=== PATIENT | female | born 1980 | race Caucasian/White ===

== ENCOUNTER 2024-08-01 13:46 | Outpatient (CLI) | payer OTHER, SELFPAY ==
--- NOTE | 2024-08-01 14:00 | CRLHL7_ITS ---
For Patients: As a result of the Century Cures Act, medical imaging exams and procedure reports are released immediately into your electronic medical record. You may view this report before your referring provider. If you have questions, please contact your health care provider. OB ULTRASOUND FIRST TRIMESTER INDICATION: Dating and viability. TECHNIQUE: Real time jim scale imaging of the fetus was performed. Transabdominal. LMP: 04/11/2024. Single. Previous US: No. CERVIX: 5.0 cm. POSITIONING: Breech, transverse, multiple. AMNIOTIC FLUID: 3.7 cm. SDP (N: greater than 2 x 1 cm) PLACENTA: Technique: Transabdominal. PLACENTA POSITION: Posterior. DOPPLER: heart rate: 145 bpm. BIOMETRY: BPD: 3.7 cm. 17 w, 3 d, 95.2 percent. HC: 13.9 cm. 17 w, 2 d, 92.7 percent. AC: 11.7 cm. 17 w, 3 d, 90.6 percent. FL: 2.1 cm. 16 w, 1 d, 52.4 percent. FL/AC ratio: 177 percent. HC/AC ratio: 1.2. EFW: 172.5 g. Weight: 0 lbs, 6 oz. age by this US: 17 w, 1 d. STEFANI by this US: 01/08/2025. Percentile by STEFANI: 92.3 percent. IMPRESSION: 1. Sonographic gestational age 17 weeks 1 day and sonographic due date 01/08/2025. 2. Complex choroid plexus cyst on the left measures 8 x 8 x 6 mm. Follow-up at the routine anatomic survey recommended. Faizan Menjivar M.D. Diagnostic Radiologist [email or web address] ASIF/mauri JR/Dictated by: Faizan Menjivar MD @ 08/02/2024 6:11:00 AM (Electronically Signed)
== END 2024-08-01 13:47 | disposition home or self-care (01) ==
LOC: US 13:47
PROVIDERS: PCP Pediatrics; Visit Provider Registered Nurse
DX: Z34.92 Encounter for supervision of normal pregnancy, unspecified, second trimester (principal); O34.82 Maternal care for other abnormalities of pelvic organs, second trimester; N83.292 Other ovarian cyst, left side; Z3A.17 17 weeks gestation of pregnancy
CPT/HCPCS: 76815; 83021; 86703; 86706; 86803; 86850; 86900; 86901; 87086; 87340; 87491; 87591; 87624; 88142

== ENCOUNTER 2024-08-01 15:11 | Outpatient (CLI) | payer OTHER, SELFPAY ==
[2024-08-01 19:11] LABS: Chlamydia DNA Amplified* NOT DETECTED (No Detected); GC DNA Amplified* NOT DETECTED (No Detected)
[2024-08-04 01:07] LABS: HPV Source Cervix; HPV, High Risk by TMA Not Detected
== END 2024-08-01 15:12 | disposition home or self-care (01) ==
PROVIDERS: PCP Pediatrics; Visit Provider Registered Nurse
DX: Z34.82 Encounter for supervision of other normal pregnancy, second trimester (principal)
CPT/HCPCS: 83020; 83021; 85660; 86592; 86703; 86704; 86706; 86762; 86787; 86803; 86850; 86900; 86901; 87086; 87340; 87491; 87591; 87624; 87625; 88141; 88142

== ENCOUNTER 2024-08-24 10:57 | Outpatient (CLI) | payer OTHER, SELFPAY ==
--- NOTE | 2024-08-24 11:15 | CRLHL7_ITS ---
For Patients: As a result of the Century Cures Act, medical imaging exams and procedure reports are released immediately into your electronic medical record. You may view this report before your referring provider. If you have questions, please contact your health care provider. OB ULTRASOUND GREATER THAN 14 WEEKS, 08/24/2024 CLINICAL HISTORY: anatomy survey. COMPARISON: 08/01/2024. TECHNIQUE: Real time jim scale imaging of the fetus was performed. Evaluate anatomy. Transabdominal and transvaginal. FINDINGS: LMP: 04/11/2024. STEFANI by LMP: 01/16/2025. STEFANI by US: 01/08/2025. GA: 20 weeks 3 days. POSITION: Transverse. Head to maternal left. PLACENTA/CORD: Placenta Position: Posterior. Technique: TA and TV. Previa. UMBILICAL CORD: 3 vessel cord. Placental Insertion: Central. AMNIOTIC FLUID: 4.3 cm SDP. CERVIX: Visualized. Technique: TV. Length of closed cervix: 5.6 cm. OBSERVED STRUCTURES: Cerebellum: 2.1 cm, 21 weeks 2 days Cisterna Magna: 5.8 mm Nuchal Fold: 5.4-6.9 mm Lateral Ventricle: 1.6 mm CSP Choroid Plexus Midline Falx Spine Abdomen: Stomach Abd Cord Insert Urinary Bladder Kidneys Face: Nose/Lips Orbital View Profile Limbs; Upper Extremities Lower Extremities Hands Feet Vascular: 4 Ch Heart LVOT RVOT 3VV 3VTV BIOMETRY: BPD: 4.6 cm, 20 weeks 0 days. 32.5% HC: 17.4 cm, 20 weeks 0 days. 21.9% AC: 15.0 cm, 20 weeks 2 days. 36.7% FL: 3.0 cm, 19 weeks 1 day. 8.4% FL/AC Ratio: 19.9% HC/AC Ratio: 1.2 Heart Rate: 149 bpm. Age by this US: 20 weeks 1 day. STEFANI by this US: 01/10/2025. EFW: 3124 grams Percentile by STEFANI: 15.4% IMPRESSION: 1. Sonographic gestational age 20 weeks 1 day with sonographic due date 01/10/2025. Good correlation with dates. 2. Estimated weight 15th percentile. Abdominal circumference 37th percentile. Femur length 8th percentile. 3. Posterior placenta which covers the internal cervical os, confirmed with transvaginal imaging. This is consistent with complete placenta previa. 4. Fullness of the nuchal fold measuring 5.4-6.9 mm. Level 2 ultrasound/MFM consult recommended. 5. Incomplete visualization of the diaphragm. Remainder of the anatomic survey unremarkable. 6. Three small anterior uterine fibroids are present measuring 9 x 10 x 9 mm, 19 x 12 x 12 mm and 13 x 9 x 13 mm. Faizan Menjivar M.D. Diagnostic Radiologist [email or web address] Transcribed: 2:43 pm DW/Dictated by: Faizan Menjivar MD @ 08/24/2024 1:15:00 PM (Electronically Signed)
== END 2024-08-24 10:58 | disposition home or self-care (01) ==
LOC: US 10:57
PROVIDERS: PCP Pediatrics; Visit Provider Registered Nurse
DX: Z34.92 Encounter for supervision of normal pregnancy, unspecified, second trimester (principal); O34.12 Maternal care for benign tumor of corpus uteri, second trimester; D25.9 Leiomyoma of uterus, unspecified; Z3A.20 20 weeks gestation of pregnancy
CPT/HCPCS: 76805; 76817

== ENCOUNTER 2024-10-19 09:58 | Outpatient (CLI) | payer OTHER, SELFPAY ==
--- NOTE | 2024-10-19 10:00 | CRLHL7_ITS ---
For Patients: As a result of the Century Cures Act, medical imaging exams and procedure reports are released immediately into your electronic medical record. You may view this report before your referring provider. If you have questions, please contact your health care provider. OB ULTRASOUND LMP: 04/11/2024. STEFANI by US: 01/08/2025. GA: 28 w, 3 d. Single. Comparison: 08/24/2024, 08/01/2024. INDICATION: Follow-up placenta previa and diaphragm. TECHNIQUE: Real time grayscale imaging of the fetus was performed. Transabdominal. CERVIX: Visualized. Transabdominal Measurement: 3.7 cm. POSITIONING: Right transverse. AMNIOTIC FLUID: 5.9 cm. SDP (N: greater than 2 x 1 cm) PLACENTA: Technique: Transabdominal. PLACENTA POSITION: Posterior. DOPPLER: heart rate: 137 bpm. IMPRESSION: 1. Posterior placenta is present. The placental edge is located 4.1 cm from the internal cervical os. The cervix is closed and measures 3.7 cm. 2. Normal diaphragm. Faizan Menjivar M.D. Diagnostic Radiologist [email or web address] ASIF/maritza salas/Dictated by: Faizan Menjivar MD @ 10/19/2024 11:11:00 AM (Electronically Signed)
--- OUTSIDE RECORDS SUMMARY | 2024-10-20 00:59 | XMS_ITS | Clinical Summary ---
Author Organization [facility] Address [address] [place] [address] Care Team Providers Care Raschel Knitting Machine Operator Name Role Phone Lillian Matos MD Primary Care Provider [phone] Allergies No known active allergies Medications Vit-Fe Fumarate-FA ( MULTIVITAMIN PLUS IRON) 27-0.8 MG TABS per tablet Take 1 tablet by mouth daily Active ibuprofen (ADVIL/MOTRIN) 400 MG tabletIndication s:Indication for care in labor or delivery Take 1-2 tablets (400-800 mg) by mouth every 6 hours as needed for other (cramping) 120 tablet 3 7 Active Additional Information Patient not taking.Reported on 10/31/2018 Acetaminophen (TYLENOL PO) Take 1,000 mg by mouth every 6 hours as needed for mild pain or fever Active Active Problems Problem Noted Date Diagnosed Date Unstable lie of fetus 12/12/2020 Indication for care in labor or delivery 017 Social History Tobacco Use Types Packs/Day Years Used Date Smoking Tobacco: Never Smokeless Tobacco: Never Alcohol Use Standard Drinks/Week Comments No 0 (1 standard drink = 0.6 oz pur e alcohol) Garrard Depression Scale Answer Date Recorded Garrard Depression Score 8 12/14/2020 Last EPDS Self Harm Result Not on file 12/14 Adolescent Education Answer Date Record ed Getting School Help Needed Not on file 01/21 Comments No Sex and Gender Information Value Date Recorded Sex Assigned at Not on file Legal Sex Female 2:59 PM 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 Gender Identity Not on file Sexual Orientation Not on file Last Filed Vital Signs Vital Sign Reading Time Taken Comments Blood Pressure 119/69 12/14/2020 8:00 AM CDT Pulse 72 12/14/2020 8:00 AM CDT Temperature 36.4 C (97.6 F) 12/14/2020 8:00 AM CDT Respiratory Rate 16 12/14/2020 8:00 AM CDT Oxygen Saturation 99% 12/13/2020 6:08 AM CDT Inhaled Oxygen Concentration - - Weight 83 kg (183 lb) 12/12/2020 8:09 AM CDT Height 170.2 cm (5' 7) 12/12/2020 8:09 AM CDT Body Mass Index 28.66 12/12/2020 8:09 AM CDT Plan of Treatment Not on file Advance Directives For more information, please contact: [phone] * Full Code (Latest Code Status on File) Date Activated Date Inactivated Comments 12/12/2020 10:49 PM 12/13/2020 5:24 AM All basic a nd advanced life-sustaining interventions are performed as appropriate Question Answer Comments Code status determined by: Other (please sushil velázquez) * Full Code Date Activated Date Inactivated Comments 08/04/2016 6:53 AM 12/12/2020 7:32 AM Care Teams Raschel Knitting Machine Operator Relationship Specialty Start Date End Date Lillian Matos MD [facility] [address] [place] [address] PCP - General Internal Medicine 01/12/23
--- OUTSIDE RECORDS SUMMARY | 2024-10-20 00:59 | XMS_ITS | Encounter Summary ---
Author Organization [facility] Address [address] [place] [address]. [place] [address] Care Team Providers Care Secretary [employer] Of Commissioners Name Role Phone Екатерина Maldonado MD Primary Care Provider [phone] Lillian Matos MD Primary Care Provider [phone] Encounter Details Date Type Department Care Team (Late st Contact Info) Description 05/06/2020 External Order Results [facility] [address] [place] [address] Outside, Provider Social History Tobacco Use Types Packs/Day Years Used Date Smoking Tobacco: Never Alcohol Use Standard Drinks/Week Comments No 0 (1 standard drink = 0.6 oz pur e alcohol) Comments No Sex and Gender Information Value Date Recorded Sex Assigned at Not on file Legal Sex Female 2:59 PM TIRE MOLDER Gender Identity Not on file Sexual Orientation Not on file documented as of this encounter Plan of Treatment Not on file documented as of this encounter Procedures Procedure Name Priority Date/Time Associated Diagnosis Comments TREPONEMA PALLIDUM ANTIBODY (RPR) (EXTERNAL RESULT) Routine 05/06/2020 11:40 AM TIRE MOLDER HIV 1&2 ANTIBODY (EXTERNAL RESULT) Routine 05/06/2020 11:40 AM TIRE MOLDER RUBELLA ANTIBODY IGG (EXTERNAL RESULT) Routine 05/06/2020 11:40 AM TIRE MOLDER ABO & RH (EXTERNAL RESULT) Routine 05/06/2020 11:40 AM TIRE MOLDER CBC WITH PLATELETS & DIFFERENTIAL Routine 05/06/2020 11:40 AM TIRE MOLDER HEPATITIS C ANTIBODY Routine 05/06/2020 11:40 AM TIRE MOLDER HEPATITIS B SURFACE ANTIGEN Routine 05/06/2020 11:40 AM TIRE MOLDER documented in this encounter Results * (ABNORMAL) CBC with Platelets & Differential (05/06/2020 11:40 AM TIRE MOLDER) % Basophils (External) 0.3 % NON-INTERFACE D (ONBASE SCANS) Absolute Basophils (External) 0.03 0.00 - 0.20 K/uL NON-INTERFACE D (ONBASE SCANS) % Eosinophils (External) 2.0 % NON-INTERFACE D (ONBASE SCANS) Absolute Eosinophils (External) 0.23 0.00 - 0.45 K/uL NON-INTERFACE D (ONBASE SCANS) Hematocrit (External) 34.0(L) 36.0 - 48.0 % NON-INTERFACE D (ONBASE SCANS) Hemoglobin (External) 11.4(L) 12.0 - 15.0 gm/dL NON-INTERFACE D (ONBASE SCANS) Absolute Immature Granulocytes (External) 0.05 K/uL NON-INTERFACE D (ONBASE SCANS) % Immature Granulocytes (External) 0.4 <=1.0 % NON-INTERFACE D (ONBASE SCANS) % Lymphocytes (External) 15.7 % NON-INTERFACE D (ONBASE SCANS) Absolute Lymphocytes (External) 1.81 1.00 - 4.00 K/uL NON-INTERFACE D (ONBASE SCANS) MCH (External) 30 27 - 33 Pg NON- INTERFACE D (ONBASE SCANS) MCHC (External) 34 33 - 36 % NON- INTERFACE D (ONBASE SCANS) MCV (External) 89 80 - 100 fL NON-INTERFACE D (ONBASE SCANS) % Monocytes (External) 8.9 % NON-INTERFACE D (ONBASE SCANS) Absolute Monocytes (External) 1.02(H) 0.00 - 1.00 K/uL NON-INTERFACE D (ONBASE SCANS) Platelet Count (External) 271 150 - 400 K/UL NON-INTERFACE D (ONBASE SCANS) % Neutrophils (External) 72.7 % NON-INTERFACE D (ONBASE SCANS) Absolute Neutrophils (External) 8.38(H) 1.80 - 7.80 K/uL NON-INTERFACE D (ONBASE SCANS) RBC Count (External) 3.83(L) 4.20 - 5.40 M/uL NON-INTERFACE D (ONBASE SCANS) RDW (External) 12.0 11.5 - 14.5 % NON-INTERFACE D (ONBASE SCANS) WBC Count (External) 11.5(H) 4.3 - 10.8 K/u L NON-INTERFACE D (ONBASE SCANS) Blood 05/06/2020 11:4 0 AM TIRE MOLDER Narrative B[facility]ZE PFT - 12/07/2020 11:12 AM CDT Verified by Jose Toro on 12/07/2020. Patient Reported LAB - BLOOD ORDERABLES Edited [employer] Performing Organization Address [facility] de Phone Number [facility] PFT NON-INTERFACED (ONBASE SCANS) * Hepatitis B surface antigen (05/06/2020 11:40 AM TIRE MOLDER) Hep B Surface Agn (External) Non-Reacti ve Non-Reacti ve NON-INTERFACE D (ONBASE SCANS) Blood 05/06/2020 11:4 0 AM TIRE MOLDER Narrative [facility] PFT - 12/07/2020 11:12 AM CDT Verified by Jose Toro on 12/07/2020. Patient Reported LAB - BLOOD ORDERABLES [facility] Performing Organization Address [facility] Co de Phone Number B[facility]ZE PFT NON-INTERFACED (ONBASE SCANS) * Rubella Antibody IgG (External Result) (05/06/2020 11:40 AM TIRE MOLDER) Rubella Antibody IgG (External) Immune Immune NON-INTERFACED (ONBASE SCANS) 05/06/2020 11:4 0 AM TIRE MOLDER Narrative [facility]ZE PFT - 12/07/2020 11:12 AM CDT Verified by Jose Toro on 12/07/2020. us Patient Reported LAB - HIM EXTERNAL RESULT Edite d Result - Final Performing Organization Address [facility]/ZIP Co de Phone Number BREEZE PFT NON-INTERFACED (ONBASE SCANS) * Treponema Pallidum Antibody (RPR) (External Result) (05/06/2020 11:40 AM TIRE MOLDER) Treponema Palldum Antibody (External) Nonreactive Nonreactive NON-INTERFAC ED (ONBASE SCANS) 05/06/2020 11:4 0 AM TIRE MOLDER Narrative [facility]ZE PFT - 12/07/2020 11:12 AM CDT Verified by Jose Toro on 12/07/2020. us Patient Reported LAB - HIM EXTERNAL RESULT Edite d Result - Final Performing Organization Address [facility] de Phone Number BREEZE PFT NON-INTERFACED (ONBASE SCANS) * Hepatitis C antibody (05/06/2020 11:40 AM TIRE MOLDER) Hepatitis C Antibody (External) Non-Reacti ve Non-Reacti ve NON-INTERFACE D (ONBASE SCANS) Blood 05/06/2020 11:4 0 AM TIRE MOLDER Narrative [facility]ZE PFT - 12/07/2020 11:12 AM CDT Verified by Jose Toro on 12/07/2020. us Patient Reported LAB - BLOOD ORDERABLES Edited R esult - Final Performing Organization Address [facility] Co de Phone Number BREEZE PFT NON-INTERFACED (ONBASE SCANS) * HIV-1 Antibody (External Result) (05/06/2020 11:40 AM TIRE MOLDER) HIV 1&2 Antibody (External) Non-Reacti ve Non-Reacti ve NON-INTERFACE D (ONBASE SCANS) 05/06/2020 11:4 0 AM TIRE MOLDER Narrative [facility]ZE PFT - 12/10/2020 8:07 AM CDT Verified by Jose Toro on 12/07/2020. us Patient Reported LAB - HIM EXTERNAL RESULT Edite d Result - Final [place] PFT NON-INTERFACED (ONBASE SCANS) * ABO & RH (External Result) (05/06/2020 11:40 AM TIRE MOLDER) ABO (External) O NON-I NTERFACE D (ONBASE SCANS) Rh (External) Positive NON-IN TERFACE D (ONBASE SCANS) Comment:Antibody Screen: Neg ative 05/06/2020 11:4 0 AM TIRE MOLDER Narrative [place] PFT - 12/07/2020 11:12 AM CDT Verified by Jose Toro on 12/07/2020. us Patient Reported LAB - HIM EXTERNAL RESULT Edite d Result - Final [place] PFT NON-INTERFACED (ONBASE SCANS) documented in this encounter Visit Diagnoses Not on filedocumented in this encounter Care Teams Secretary Board Of Commissioners Relationship Specialty Start Date End Date Екатерина Maldonado MD [address] [place] [address] PCP - General sorting cows worker 06/24/16 01/11/23 Lillian Matos MD [facility] [address] [address] [place] [address] PCP - General Internal Medicine 01/12/23 documented as of this encounter
== END 2024-10-19 09:59 | disposition home or self-care (01) ==
LOC: US 09:59
PROVIDERS: PCP Pediatrics; Visit Provider Obstetrics & Gynecology
DX: O44.03 Complete placenta previa NOS or without hemorrhage, third trimester (principal); Z3A.28 28 weeks gestation of pregnancy
CPT/HCPCS: 76816; 86592

== ENCOUNTER 2024-11-15 14:41 | Outpatient (CLI) | payer OTHER, SELFPAY ==
--- NOTE | 2024-11-15 14:45 | CRLHL7_ITS ---
For Patients: As a result of the Cures Act, medical imaging exams and procedure reports are released immediately into your electronic medical record. You may view this report before your referring provider. If you have questions, please contact your health care provider. OBSTETRICAL ULTRASOUND ??? FOLLOW-UP, 11/15/2024 INDICATION: AMA. CLINICAL HISTORY: STEFANI by US: 01/08/2025 Gestational Age: 32 weeks 2 days COMPARISON: 10/19/2024, 08/24/2024, 08/01/2024. TECHNIQUE: Real-time jim-scale transabdominal imaging of the fetus was performed. FINDINGS: Fetus: Single Cervix: Not visualized positioning: Transverse, right Amniotic Fluid: INDIO: 25.7 cm 8.6 cm SDP Placenta technique: Transabdominal Placenta position: Posterior heart rate: 131 bpm BIOMETRY: BPD: 8.8 cm, 35 weeks 3 days, >97% HC: 31.8 cm, 35 weeks 5 days, 92.6% AC: 31.3 cm, 35 weeks 1 days, >97% FL: 6.0 cm, 31 weeks 2 days, 14.9% FL/AC Ratio: 19.26% HC/AC ratio: 1.02 EFW: 2379 grams; 5 lbs. 4 oz. age by this ultrasound: 34 weeks 3 days STEFANI by this ultrasound: 12/24/2024 Percentile by STEFANI: 92.5% IMPRESSION: 1. Sonographic gestational age 34 weeks 3 days and sonographic due date 12/24/2024. Sonographic age is 15 days ahead of the clinical age. 2. Estimated weight is 93rd percentile. Abdominal circumference is greater than 97th percentile. Biparietal diameter is greater than 97th percentile. FAIZAN MOMIN M.D. Diagnostic Radiologist [email or web address] Transcribed: 3:[address]/Dictated by: Faizan Momin MD @ 11/15/2024 3:30:00 PM (Electronically Signed)
== END 2024-11-15 14:42 | disposition home or self-care (01) ==
LOC: US 14:42
PROVIDERS: PCP Pediatrics; Visit Provider Obstetrics & Gynecology
DX: O09.523 Supervision of elderly multigravida, third trimester (principal); O36.63X0 Maternal care for excessive fetal growth, third trimester, not applicable or unspecified; Z3A.32 32 weeks gestation of pregnancy
CPT/HCPCS: 76816

== ENCOUNTER 2024-11-29 10:05 | Outpatient (CLI) | payer OTHER, SELFPAY ==
--- NOTE | 2024-11-29 10:15 | CRLHL7_ITS ---
For Patients: As a result of the Cures Act, medical imaging exams and procedure reports are released immediately into your electronic medical record. You may view this report before your referring provider. If you have questions, please contact your health care provider. OB ULTRASOUND LIMITED, 11/29/2024 CLINICAL HISTORY: Polyhydramnios. TECHNIQUE: Real time jim scale imaging of the fetus was performed. Transabdominal imaging performed. COMPARISON: 11/15/2024, 10/19/2024, 08/24/2024. FINDINGS: STEFANI by US: 01/08/2025. GA: 34 weeks 2 days. Gestation: Single. Cervix: Not visualized. Positioning: Multiple. Amniotic Fluid: 21.9 cm INDIO. 5.7 cm SDP. Placenta: Technique: TA. Placental Position: Fundal, posterior. Dopplers: Heart Rate: 153 bpm. IMPRESSION: Amniotic fluid single deepest pocket 5.7 cm. INDIO 21. 9 cm. Faizan Menjivar M.D. Diagnostic Radiologist [email or web address] Transcribed: 9:21 am DW/Dictated by: Faizan Menjivar MD @ 12/02/2024 9:06:00 PM (Electronically Signed)
== END 2024-11-29 10:06 | disposition home or self-care (01) ==
LOC: US 10:05
PROVIDERS: PCP Pediatrics; Visit Provider Obstetrics & Gynecology
DX: O40.3XX0 Polyhydramnios, third trimester, not applicable or unspecified (principal); Z3A.34 34 weeks gestation of pregnancy
CPT/HCPCS: 76815; 82728

== ENCOUNTER 2024-12-10 15:53 | Outpatient (CLI) | payer OTHER, SELFPAY ==
[2024-12-11 15:32] LABS: Strep B DNA Probe Negative (Negative)
[2024-12-11 18:02] LABS: Strep B Susceptibility Needed? No
== END 2024-12-10 15:54 | disposition home or self-care (01) ==
LOC: NFLDREF 15:53
PROVIDERS: PCP Pediatrics; Visit Provider Obstetrics & Gynecology
DX: Z34.93 Encounter for supervision of normal pregnancy, unspecified, third trimester (principal); Z3A.35 35 weeks gestation of pregnancy
CPT/HCPCS: 87081; 87653

== ENCOUNTER 2025-01-02 05:38 | Inpatient (IN) | payer OTHER, SELFPAY ==
[2025-01-02] VITALS (19 sets, daily range): BP systolic 109–132; BP diastolic 65–79; PULSE 65–80; RESP 16–18; TEMP 36.4–36.9; O2SAT 95–98; BMI 30.5
[2025-01-02] MEDS: LACTATED RINGERS 1000 ML 1,000 ML 1200 ML IV ×2 (06:14→07:02)
[2025-01-02 06:24] LABS: Hematocrit 31.7 % (33.0-51.0); Hemoglobin* 10.9 gm/dL (12.0-16.0); Immature Granulocytes Pct Auto 4.2 %; Mean Corpuscular HGB Conc 34 gm/dL (32-36); Mean Corpuscular Hemoglobin 30 pg (26-34); Mean Corpuscular Volume 88 fL (80-100); RDW Coefficient of Variation % 14.1 % (11.5-15.5); Red Blood Count 3.59 m/uL (4.00-5.20); White Blood Count* 12.42 K/uL (4.50-11.00)
[2025-01-02 06:37] LABS: Immature Granulocytes Abs Auto 0.50 K/uL (0.00-0.30); Lymphocytes Absolute Auto 1.90 K/uL (0.90-2.90); Slide Review Reflex No
--- NOTE | 2025-01-02 06:58 | W.PM.H&PU_ITS ---
History & Physical Update History & Physical Update H&P Reviewed and patient assessed: No changes noted H&P Updates: Ms. King is a 44yo at 39w1d GA seen in pre-op prior to planned primary delivery and salpingectomy. Patient desires primary due to traumatic 1st delivery (retained products, endometritis, perineal incision breakdown, dyspareunia) but was also malpresenting on admission. No interval change to her health history or questions today. We again reviewed the risks, benefits and alternatives to the planned procedure. Written consent was previously signed on 12/10, verbally affirmed. TAUS performed where fetus was noted to be transverse, back positioned anteriorly. Explained this increases the likelihood of classical hysterotomy to facilitate delivery, where this would preclude future vaginal deliveries (though patient desires salpingectomy today) and could increase risk of bleeding. Reactive NST. Post- procedure restrictions and expectations reviewed. Pre-op labs reviewed and are within normal limits. Ancef as perioperative antibiotics indicated. Pediatrics provider requested to attend delivery in the setting of malpresentation.
[2025-01-02] MEDS: CEFAZOLIN 2 GM INJ IVP (07:35)
--- NOTE | 2025-01-02 07:44 | P.ANES_ITS ---
Anesthesia Charges Start Date/Time Anesthesia Start Date: 01/02/25 Anesthesia Start Time: 07:22 Stop Date/Time Anesthesia Stop Date: 01/02/25 Anesthesia Stop Time: 09:00 Coding CPT Codes CPT Codes: ANESTH CS DELIVERY - 54827 ([id number]) P2 - PATIENT W/MILD SYST DISEASE, QK - DESIGN PRINTING MACHINE SET UP OPERATOR 2-4 CNCRNT ANES PROC, QX - MATH TEACHER SVC W/ MD MED DIRECTION
--- NOTE | 2025-01-02 07:44 | W.ANESCHARGE ---
Anesthesia Charges Start Date/Time Anesthesia Start Date: 01/02/25 Anesthesia Start Time: 07:22 Stop Date/Time Anesthesia Stop Date: 01/02/25 Anesthesia Stop Time: 09:00 Coding CPT Codes CPT Codes: ANESTH CS DELIVERY - 94797 ([id number]) P2 - PATIENT W/MILD SYST DISEASE, QK - SHOOTING GALLERY OPERATOR 2-4 CNCRNT ANES PROC, QX - PLASTIC TOP ASSEMBLER SVC W/ MD MED DIRECTION
--- NOTE | 2025-01-02 07:45 | P.NB_ITS ---
Nerve Block Nerve Block Time Seen by Provider: 08:54 Date Seen: 01/02/25 Type of block requested by surgeon for post-operative analgesia: TAP Side: bilateral Time out performed: Yes Verification of patient name: Yes Verification of date of : Yes Site marking: site marked Name of person performing procedure: Claudio Coley Continuous monitoring Was continuous monitoring of O2 sat, B/P, monitor technician, recorded every 15 minutes?: Yes Procedure Checklist: sterile prep, needles and gloves Ultrasound guided. Images saved: Yes Medications given in 5ml increments after negative aspiration: Marcaine %: 0.25 mL: 30 Needle gauge: 20 and Exparel mL: 10 Needle gauge: 20 Patient tolerated procedure well: Yes Additional comments: Injected in 5ml increments after negative aspiration Block Charges Block Charge (with Pro Fee): TAP Bilateral Use of Ultrasound Machine for Block: Yes- US Guidance/pain block
--- NOTE | 2025-01-02 07:57 | P.ANES_ITS ---
Anesthesia Charges Start Date/Time Anesthesia Start Date: 01/02/25 Anesthesia Start Time: 07:22 Stop Date/Time Anesthesia Stop Date: 01/02/25 Anesthesia Stop Time: 09:00 Coding CPT Codes CPT Codes: ANESTH CS DELIVERY - 83701 ([id number]) P2 - PATIENT W/MILD SYST DISEASE, QK - SECURITY ASSURANCE SPECIALIST 2-4 CNCRNT ANES PROC, QX - RAIL CAR WELDER SVC W/ MD MED DIRECTION
--- NOTE | 2025-01-02 07:57 | W.ANESCHARGE ---
Anesthesia Charges Start Date/Time Anesthesia Start Date: 01/02/25 Anesthesia Start Time: 07:22 Stop Date/Time Anesthesia Stop Date: 01/02/25 Anesthesia Stop Time: 09:00 Coding CPT Codes CPT Codes: ANESTH CS DELIVERY - 99617 ([id number]) P2 - PATIENT W/MILD SYST DISEASE, QK - BANKING OFFICER 2-4 CNCRNT ANES PROC, QX - BIOMASS POWER PLANT MANAGER SVC W/ MD MED DIRECTION
--- NOTE | 2025-01-02 08:54 | P.OBPRC_ITS ---
Procedure Time Seen by Provider: 08:40 Date of procedure: 01/02/25 Pre-op diagnosis: Transverse presentation, undesired fertility, AMA, polyhydramnios (resolved), abnormal ultrasound (choroid plexus cyst resolved, thickened nuchal fold - declined further evaluation with NIPT or level 2), suspected macrosomia, anemia Post-op diagnosis: same Procedure Done: Global Will [facility] bill your pro fee for this procedure?: Yes Blood Loss Measurement Type: QBL (593) Bakri Used: No IV fluids (mL): 1,800 Urine Output (mL): 250 Urine Output Comment: clear, yellow Surgeon: Jack Patino MD Anesthesia Type: Spinal Findings: Liveborn male Unremarkable uterus bilateral fallopian tubes and ovaries 1cm simple appearing right paratubal cyst Procedure Name: Primary Bilateral salpingectomy Procedure Description: Patient was taken to the operating room with IV running. She received cefazolin in preoperative prophylaxis. Spinal anesthesia was administered. Lu catheter was inserted. She was prepped and draped in the usual sterile fashion. Anesthesia was tested and found to be adequate. A low-transverse skin incision was made with a scalpel and carried through to the underlying layer of fascia with the scalpel. The subcutaneous fat was dissected off the underlying fascia with Bovie and blunt dissection. The fascia was nicked in the midline with a scalpel, and this incision was extended laterally with scissors. The rectus muscles were in the midline. Peritoneum was identified and entered bluntly. Bovie was used to widen this opening laterally. Brendan O retractor was inserted and tightened down, providing excellent visualization of the lower uterine segment. The bladder reflection was found to be advanced along the lower uterine segment. A bladder flap was created with a combination of sharp and blunt dissection. The fetus was noted to be oblique with head to maternal left pelvis, back palpated anteriorly. Pressure was applied at the lateral uterine fundus to gently correct position to vertex and centrally at the level of the lower uterine segment. Low-transverse uterine incision was made with a scalpel. Incision was widened bluntly. The infant's head was grasped through the hysterotomy and elevated to the hysterotomy. The remainder of the body delivered without incident with the help of fundal pressure. Loose nuchal cord was noted, reduced. Vigorous noted, excellent tone and spontaneous cry. Cord was clamped and cut after 30 seconds. was handed off to attending nurses. The placenta was delivered with gentle traction on the cord. The uterus was cleaned of all clots and debris with the dry lap pad. The hysterotomy was reapproximated with 0 Vicryl in a running, locked fashion. Second layer of the same suture was used in imbricating fashion to obtain hemostasis. The adnexa were examined and noted to be normal in appearance, aside from a 1cm right simple paratubal cyst. The right fallopian tube was identified and elevated with Babcocks. The right fallopian tube was sequentially ligated and transected from the mesosalpinx using the Ligasure cautery device. We proceeded from the fimbriated end, lateral to medial, and the tube was amputated at the right uterine cornua. Specimen was removed from the field. Paratubal cyst toward the fimbriated end of the tube was separately grasped, elevated and ligated/transected with ligasure. Excellent hemostasis noted. Salpingectomy was repeated on the patient's left side, and the left fallopian tube was also amputated at the cornua and removed from the patient's abdomen. Both fallopian tubes and the right paratubal cyst were sent for pathologic evaluation. The cul-de-sac and gutters were cleansed with dampened laparotomy sponge, removing any further clots and debris. The hysterotomy and salpingectomy sites were inspected and noted to be hemostatic. The Brendan O retractor was removed. The hysterotomy was reexamined and found to be hemostatic. The rectus muscles were examined and made hemostatic with electrocautery. The fascia was reapproximated with 0 Vicryl in a running fashion. Subcutaneous fat was irrigated and Bovie used on oozing vessels. The subcutaneous fat did not require closure. The skin was closed with a subcuticular stitch of 3-0 monocryl. Surgical glue was applied above this. Patient tolerated procedure well was taken to recovery area in stable condition. Surgical debrief was completed. Specimens include placenta, bilateral fallopian tubes and right paratubal cyst. details: - Liveborn male fetus - weight: 3945g - APGARs were 8 and 9 at 1 and 5 minutes respectively Complications: None Pathology: specimen obtained, sent to pathology Surgery Debrief Performed: Yes Condition: stable Disposition: floor [place] total score - 1 minute: 8 total score - 5 minute: 9
[2025-01-02] MEDS: ACETAMINOPHEN 500 MG TABLET 1000 MG PO ×2 (12:44→19:21)
[2025-01-02] MEDS: DOCUSATE SODIUM 100 MG CAPSULE PO (14:09)
[2025-01-03 01:12] VITALS: BP 113/68; PULSE 71; RESP 16; TEMP 36.6; O2SAT 97
[2025-01-03 04:50] VITALS: BP 125/80; PULSE 78; RESP 16; TEMP 36.5; O2SAT 96
[2025-01-03] MEDS: DOCUSATE SODIUM 100 MG CAPSULE PO (08:34)
[2025-01-03] MEDS: FERROUS SULFATE 325 MG TABLET PO (08:34)
--- NOTE | 2025-01-03 08:34 | P.OBPN_ITS ---
OB - PN:Subj Subjective Date Seen: 01/03/25 Narrative: Shae is a 44 year old who was admitted for schedule and proceeded to have a scheduled ? due to traumatic previous , but baby was found transverse on admission.The patient feels well.? The pain is well contro lled with current medications.? She has no new complaints.? Urinary output is adequate and she is voiding without difficulty.? Has a good appetite, is tolerating a general diet, is passing flatus, and has not had a bowel movement.? Has scant amount of rubra lochia.? She is ambulating well. She is and reports it is going well.? OB - PN: Obj Exam Physical Exam: Vital signs: Temp Pulse Resp BP Pulse Ox O2 Del Method 97.7 F 78 16 125/80 96 Room Air 01/03/25 04:50 01/03/25 04:50 01/03/25 04:50 01/03/25 04:50 01/03/25 04:50 01/03/25 04:50 Narrative: GENERAL APPEARANCE:? normal affect, alert, no distress MOOD:? appropriate CHEST:? clear to auscultation HEART:? regular rate and rhythm ABDOMEN:? soft, non-tender the uterine fundus is At Umbilicus, Midline and is appropriate for the stage of recovery. EXTREMITIES:? normal and mild edema Incision: Healing well, no surrounding erythema, abnormal induration or discharge noted on surgical dressing OB - PN: A/P Delivery Plan Comments: PP day #1 Routine care May see as desired Anticipate discharge 01/04/2025
[2025-01-03] MEDS: ACETAMINOPHEN 500 MG TABLET 1000 MG PO ×2 (10:45→18:26)
[2025-01-03 10:46] VITALS: BP 113/75; PULSE 76; RESP 18; TEMP 36.9; O2SAT 96
[2025-01-03 18:21] VITALS: BP 124/78; PULSE 76; RESP 18; O2SAT 97
[2025-01-03 20:01] VITALS: BP 122/74; PULSE 74; RESP 16; TEMP 36.4; O2SAT 98
[2025-01-03] MEDS: IBUPROFEN 600 MG TABLET PO (20:36)
[2025-01-04] MEDS: ACETAMINOPHEN 500 MG TABLET 1000 MG PO ×2 (00:32→07:54)
[2025-01-04] MEDS: IBUPROFEN 600 MG TABLET PO ×2 (02:37→11:57)
[2025-01-04 04:13] VITALS: BP 105/65; PULSE 71; RESP 16; O2SAT 98
--- NOTE | 2025-01-04 07:49 | PM.OBDSVD1 ---
DS: Providers Provider Time Seen by Provider: 07:30 Date Seen: 01/04/25 Date of admission: 01/02/25 05:38 Primary care physician: Lillian Matos MD Admitting Clinician: Yadi Patino MD Attending Physician on discharge: Tiffany Trotter CNM Date of Discharge: 01/04/25 DS: Diagnosis Discharge Diagnosis (1) normal course: Status: Acute (2) Status post bilateral salpingectomy: Status: Acute (3) Anemia affecting in third trimester: Status: Acute (4) PTSD (post-traumatic stress disorder): Status: Acute Problem details: Post 1st baby: Retained placenta > endometritis > D&C > pelvic floor dysfunction & Pain > Pelvic floor PT & PP Depression. (5) Lactating mother: Status: Acute Exam Narrative: Exam Narrative: Constitutional: no acute distress Psych: alert and oriented, calm and cooperative Cardiac: regular heart rate and rhythm Respiratory: regular breathing effort, lung sounds clear to auscultation Extremities: normal, no edema Abdomen: soft, uterine fundus firm, 1 fingerbreath below umbilicus. appropriate for stage of healing Incision: low transverse incision approximated with surgical glue. No redness. No drainage. Breasts: left nipple reddened Neuro: normal sensation and movement in all extremities Const: Vital Signs, click to edit/add: Vital Signs - 24 hr 01/03/25 10:46 01/03/25 18:21 01/03/25 20:01 Temperature 98.4 F 97.6 F Pulse Rate [Pulse Oximeter] 76 76 74 Respiratory Rate 18 18 16 Blood Pressure [Ri ght Arm] 113/75 124/78 122/74 Pulse Oximetry 96 97 98 Oxygen Delivery Me thod Room Air Room Air Room Air 01/04/25 04:13 Temperature Pulse Rate [Pulse Oximeter] 71 Respiratory Rate 16 Blood Pressure [Ri ght Arm] 105/65 Pulse Oximetry 98 Oxygen Delivery Me thod Room Air Documenting provider has reviewed patient's vital signs: yes OB - DS: Summary Hospital Course Hospital Course: Shae is a 44 year old G 3 P 3 that was admitted to the Center on 01/02/25 for primary section for patient's desire r/t history of traumatic and transverse presentation. She had an uncomplicated delivery and bilateral salpingectomy. She declined her hemoglobin recheck but is having no lightheadedness, dizziness, weakness, or extreme fatigue, and bleeding is well controlled. Scant bleeding noted on peripad and not passing any blood clots.She delivered a viable male infant. She is and supplementing with formula. Aware of resources and plans to follow up with [place] . the patient has done well. Pain is controlled with Tylenol and Ibuprofen and using abdominal binder. Voiding without difficulty. Passing gas, no bowel movement yet. Taking stool softener in hospital and plans to continue her magnesium at home. Also encourage short walks and to stay hydrated. Partner at bedside. Discussed history of depression and encouraged Shae and her partner to call if s/s develop. Patient desires to go home today. Plan to return for 2 week and 6 week visit. DEEPA Vargas Discharge home with baby.? Follow up in 2 weeks and 6 weeks.? , may see if needed? Hgb 10.9. Declined repeat hemoglobin after delivery.?? For pain control of perineum, incision, and breast, take 600 mg Ibuprofen every 6 hours as needed by mouth or 1000 mg acetaminophen (Tylenol) every 6 hours by mouth as needed. You can alternate these so you are taking something every 3 hours as needed. A heating pad can also be used for your abdomen or breasts. You may also take docusate sodium up to twice daily to soften your stools and help to prevent constipation. You may wean off of it when your stools return to normal.? I,?Tiffany Trotter APRN, AKBAR, was present for visit and have reviewed and agree with documentation by the Certified Nurse Midwifery Student. Peripartum Data Infant delivery method: Primary C/S; Non-Labored Laceration description: None Episiotomy description: None Procedures: Procedures Operation Date: 01/02/25 07:15 Actual Procedure Side Surgeon p Primary Section, Salpingectomy Yadi Patino MD Procedures: tubal ligation/salpingectomy complications: none [place] Infant Gender: Male Infant Discharge Plan: Home Status at Discharge Functional status at discharge: independent ambulation Overall status at discharge: patient is progressing back to baseline Time Spent with Patient Time attestation: Total time spent providing and/or coordinating discharge services: Time spent: Less than 30 minutes Discharge Plan Discharge Disposition: Home, Self-Care Date of Admission: 01/02/25 05:38 Attending Provider on Discharge: Tiffany Trotter Primary Care Provider: Lillian Matos Condition: Stable Anticipated Discharge Date/Time: 01/04/25 10:07 Discharge Medications: New acetaminophen 500 mg Tablet 1,000 mg PO Q6H PRN (Reason: Pain) Qty: 0 0RF ferrous sulfate 325 mg (65 mg iron) Tablet 325 mg PO DAILYWM Qty: 0 0RF docusate sodium 100 mg Capsule 100 mg PO DAILY Qty: 90 0RF ibuprofen 600 mg Tablet 600 mg PO Q6H PRN (Reason: Pain) Qty: 60 0RF Continued magnesium 250 mg tablet 250 mg PO QDAY DHA 200 mg capsule 200 mg PO Probiotic (B. coagulans) 1 billion cell tablet,chewable 1 cell PO ferrous sulfate 325 mg (65 mg iron) tablet,delayed release (DR/EC) 325 mg PO Q OTHER DAY Discharge Orders: Discharge Order (Routine); Ordered 01/04/25 Ordered By: Tiffany Trotter Patient Education: OB Over the Counter Medication Information, OB /Breast Feeding Additional Instructions: Discharge instructions were reviewed with the patient including signs and symptoms of infection and home going medications Lifting Restrictions: 20 pounds for 6 weeks No not submerge incision under water X 2 weeks? Nothing vaginally for 6 weeks: no tampons or intercourse Do not drive while taking narcotic pain medication(s) Off Work or School for 8 weeks 2-week visit: incision check, discuss infant feeding concerns, review control options and screen for anxiety/depression. 6-week visit for an annual exam. consultation services are available to all mothers and babies for the first year after delivery.? To make an appointment, please call [phone]. Activity Level: Activity as Tolerated and No strenuous activity Activity Detail: no lifting more than 20 lbs Discharge Diet: Regular Follow Up Appointments: [facility] [Provider Group] Forms: [facility], [facility] Inst[facility]
[2025-01-04] MEDS: FERROUS SULFATE 325 MG TABLET PO (07:54)
[2025-01-04] MEDS: DOCUSATE SODIUM 100 MG CAPSULE PO (07:54)
[2025-01-04 07:56] VITALS: BP 125/76; PULSE 73; RESP 16; TEMP 36.7; O2SAT 100
== END 2025-01-04 12:00 | disposition home or self-care (01) | DRG 785 ==
PROVIDERS: Admitting Provider Obstetrics & Gynecology; PCP Pediatrics; Visit Provider Obstetrics & Gynecology
PROC: 10D00Z1 Extraction of Products of Conception, Low, Open Approach (ICD-10-PCS; CPT 59514; principal; 2025-01-02 07:15)
DX: O32.2XX0 Maternal care for transverse and oblique lie, not applicable or unspecified (principal); Z30.2 Encounter for sterilization; G89.18 Other acute postprocedural pain; F43.10 Post-traumatic stress disorder, unspecified; O99.02 Anemia complicating childbirth; D64.9 Anemia, unspecified; Z37.0 Single live birth; Z3A.39 39 weeks gestation of pregnancy
CPT/HCPCS: 01961; 36415; 64488; 76942; 85018; 85025; 86592; 86850; 86900; 86901; 88302; 88307; A4314; A9270; J0665; J0666; J0690; J1100; J1885; J2371; J2405; J2590; J3010; J7120